=== PATIENT | female | born 1940 | race Caucasian/White ===

== ENCOUNTER 2023-01-09 12:17 | Inpatient (IN) | payer MEDICARE ==
[~2023-01-09] VITALS: Ht 165.1 cm; Wt 62.4 kg
[2023-01-09] VITALS (16 sets, daily range): BP systolic 96–193; BP diastolic 48–88
[2023-01-09 16:27] LABS: Hematocrit 38.9 % (33.0-51.0); Hemoglobin 13.4 g/dL (11.5-16.0); Mean Corpuscular HGB 32.9 pg (26.0-34.0); Mean Corpuscular HGB Conc 34.4 g/dL (31.5-36.5); Mean Corpuscular Volume 96 fL (80-100); Mean Platelet Volume 9.3 fL (9.1-12.4); Platelet Count 191 K/mm3 (150-400); RDW Coefficient Variation 13.1 % (11.7-14.2); Red Blood Cell Count 4.07 M/mm3 (3.80-5.20); White Blood Cell Count 9.71 K/mm3 (4.00-11.30)
[2023-01-09 16:54] LABS: Bun/Creatinine Ratio 26.4 (12.0-20.0); Calcium, Blood 8.7 mg/dL (8.5-10.1); Creatinine, Blood 0.64 mg/dL (0.40-1.00); Potassium, Blood 3.8 mmol/L (3.5-5.5); Thyroid Stimulating Hormone 1.8 uIU/mL (0.360-4.800)
[2023-01-09] MEDS ORDERED: Aspir 8181 MG PO (17:21)
[2023-01-09] MEDS ORDERED: GABA300 PO (17:22)
[2023-01-09] MEDS ORDERED: HYDCHL25 PO (17:22)
[2023-01-09] MEDS ORDERED: NAPR500 PO (17:23)
[2023-01-09] MEDS ORDERED: TAMO10 PO (17:23)
[2023-01-09] MEDS ORDERED: PANT40 PO (17:23)
[2023-01-09] MEDS ORDERED: PROBIOTIC1 EA13 PO (17:24)
[2023-01-09] MEDS ORDERED: B-12500 MC2 PO (17:24)
[2023-01-09] MEDS ORDERED: VITAMIN D5000 UNIT PO (17:24)
--- NOTE | 2023-01-09 19:37 | NUR ---
1900 PATIENT ARRIVED TO ICU 8 VIA BED WITH ZOLE IN PLACE. MONITOR SHOWING 3RD DEGREE HEART BLOCK WITH RATE 30'S. PATIENT AWAKE AND ANSWERING QUESTIONS, YET CONFUSED HX DEMENTIA. AWARE SHE IS NOT IN [place]. UNSURE OF WHY AND WHERE SHE IS. MAEW, NO COMPLAINTS OF DIZZINESS OR PAIN. STARTING [facility] NURSES ARRIVE TO TAKE PATIENT TO HAVE TEMP PACER PLACED WITH DOCTOR WARNER.
--- NOTE | 2023-01-09 19:40 | NUR ---
ADMIT/TRANSFER DIRECT ADMIT FROM [place] FOR [facility]. ALERT BUT CONFUSED ON ARRIVAL. HX DEMENTIA. KNOWS HER NAME, , AND FAMILY MEMBER WHO IS POA. DOES NOT KNOW WHERE SHE IS OR WHAT IS HAPPENING. TELE HR GURPREET WITH 3RD DEGREE BLOCK, BBB, SHORT RUNS OF VTACH. RUNS OF VTACH INCREASED IN DURATION. DR HYLTON ELECTED TO TAKE PATIENT TO DIRECTOR CORPORATE SALES FOR TEMP PACER WIRE PLACEMENT. PATIENT TRANSFERRED TO ICU. PLACE DON ZOLL. 2 G MAG IV ORDERED. BP ELEV. REPORT GIVEN AT BEDSIDE TO PLANT SCIENCE PROFESSOR.
--- NOTE | 2023-01-09 20:30 | NUR ---
PATIENT RETURN TO ROOM FROM CARDIAC TECHNICIAN WITH TRANSVENOUS PACER IN PLACE VIA RIGHT IJ, RATE 60, 5 MA, 0.6 MV MONITOR SHOWING GOOD CAPTURE 100% PACED, OCCASIONAL PVC SEEN. DRESSING CD&I FIRST LOU SEEN IS 80. PATIENT AWAKE, VERY FORGETFUL AND IMPULSIVE. FOLLOWS DIRECTIONS, YET WHILE EXPLAINING TO NOT REMOVE DRESSING PATIENT REACHING UP TO LINE AND PULLING ON DRESSING. PATIENT PLACED IN WRIST RESTRAINTS TO PREVENT ACCIDENTAL REMOVAL OF PACEMAKER.
--- NOTE | 2023-01-09 22:45 | NUR ---
RATE ON PACER INCREASED TO 68 KEEP PULSE RATE GREATER THAN 60
[2023-01-10] VITALS (35 sets, daily range): BP systolic 105–163; BP diastolic 58–111
--- NOTE | 2023-01-10 02:02 | NUR ---
PATIENT REPOSITIONED AND ABLE TO SEE TRANSVENOUS PACER MARKINGS CLEARER. 60 LOU IS CLOSE TO SHEATH (INTRODUCER) NO CHANGE TO 80 LOU AND DRESSING REMAINS CD&I. PATIENT CONTINUES TO BE VERY FORGETFUL AND CONTINUES TO NEED BILAT WRIST RESTRAINTS TO PREVENT ACCIDENTAL REMOVAL OF TRANSVENOUS PACER
--- NOTE | 2023-01-10 07:32 | NUR ---
SUMMARY PATIENT WITH TRANSVENOUS PACEMAKER TO RIGHT IJ IN PLACE WITH GOOD CAPTURE WITH OCCASIONAL PVC. NO FURTHER VTACH. BP STABLE. PATIENT CONTINUES TO BE CONFUSED AND IMPULSIVE.
[2023-01-10 08:29] LABS: Bun/Creatinine Ratio 19.1 (12.0-20.0); Calcium, Blood 8.5 mg/dL (8.5-10.1); Creatinine, Blood 0.63 mg/dL (0.40-1.00); Magnesium, Blood 2.2 mg/dL (1.6-2.4); Potassium, Blood 3.8 mmol/L (3.5-5.5)
--- NOTE | 2023-01-10 11:36 | NUR ---
Spiritual care visit conducted. Patient is lying inbed and alert. She immediately tells me that she is falling apart and can't seem to get the pieces back together again. She explains that she has no idea why they took her out of her room to bring her to the room she is currently in and she does not know where her belongings are. We talk abut where she is, why she is locacated here and where her things are. I explain that we are putting her pieces back together. She talks about her family and her growing up years, and her Faith belief system. She shares about how her family could take it or leave it but she loved prayer, judaism youth group meetings, the positive people and how she has stayed with her enrique her whole life. Her enrique is very meaningful to her currently and prayers is in her thoughts constantly. I conduct a life review, listen empathically, recite inspiring scriptures and provide levety and prayers. Patient states, "You give me uppers, you made me feel wonderful." Those few moments the patient felt better and that is beautiful. I will continue to remain avaialble to patient and family.
--- NOTE | 2023-01-10 11:55 | NUR ---
REASSESSMENT PT HAS BEEN RESTING IN BED THROUGHOUT THE SHIFT. TV PACER CONTINUES WITH GOOD SENSING AND CAPTURE. RATE 66 OUTPUT 5.0 AND SENSING 0.6. PT REMAINS ALERT, ORIENTED TO HERSELF. SHE FORGETS WHAT SHE IS TOLD WITHIN A COUPLE MINUTES. REMAINS IN RESTRAINTS TO PROTECT PACER. TRIALLED PT OUT OF RESTRAINTS SEVERAL TIMES, BUT PT QUICKLY STARTED PICKING AT WIRES. LUGNS ARE CLEAR, RA. BP STABLE. PUREWICK IN PLACE AND PT USING APPROPRIATELY, BUT HAS TO BE REMINDED TO VOID. TEST CONDUCTOR CALLED AND SAID THEY ARE PLANNING FOR EARLY AFTERNOON. PT'S NIECE CALLED AND SPOKE WITH PT.
--- NOTE | 2023-01-10 15:58 | NUR ---
PT BACK FROM PACEMAKER PLACEMENT. ALERT, ORIENTED TO SELF. KEEPS ASKING TO GO OUTSIDE TO HAVE A CIGARETTE AND STARTED TO GET IRRITATED THAT SHE COULDN'T. NICOTINE PATCH THAT SHE REFUSED THIS MORNING OFFERED MULTIPLE TIMES AND PT FINALLY AGREED TO IT. SLING PLACED ON L ARM, BUT PT STILL MOVING IT AROUND A BIT DESPITE INSTRUCTIONS NOT TO. PT ALSO PICKING AT THE DRESSINGON HER NECK WHERE THE TV PACER WAS. SPOKE WITH PREDATORY ANIMAL TRAPPER AND PLAN IS TO GET 1:1 SITTER TO HELP REMIND AND REORIENT PT. SPOKE WITH PT'S BROTHER AND PROVIDED UPDATE.
--- NOTE | 2023-01-10 16:59 | NUR ---
SHIFT SUMMARY PT WENT AND HAD HER PACER PLACED THIS AFTERNOON AND HAS TOLERATED IT WELL. SHE DENIES ANY PAIN. DRESSING OVER INCISION IS C/D/I, MINIMAL SWELLING. SLING ON PT'S L ARM, BUT SHE KEEPS PUSHING IT UP LIKE A SLEEVE SO SHE CAN MOVE HER ARM MORE. PT WAS ALSO STILL PICKING AT THE DRESSING ON HER NECK AND FROM THE PACER WELL TRYING TO GET OUT OF BED SO SHE CAN GO SMOKE. 1:1 SITTER AT THE BEDSIDE FOR SAFETY NOW. LUNGS REMAIN CLEAR, RA, BP STABLE, PUREWICK DRAINING CL YELLOW URINE. CONTINUING TO MONITOR.
--- NOTE | 2023-01-10 21:27 | NUR ---
PATIENT AWAKE WATCHING TV WITH 1:1 SITTER IN ROOM. VERY FORGETFUL. ORIENT TO PERSON ONLY, WITHIN MIN NEEDING TO BE REMINDED THAT SHE HAD A PACEMAKER PLACED TODAY " OH THAT'S RIGHT" AND THEN WITH IN MIN FORGETTING AGAIN. PLEASANT AND COOPERATIVE WITH REDIRECTION. MONITOR SHOWING 100% PACED WITH OCCASIONAL PVC. DRESSING TO LEFT CHEST CD&I, NO SWELLING SEEN. ICE PACK PLACED TO SITE TO HELP WITH SWELLING AND PAIN. SLING IN PLACE TO HELP SUPPORT ARM AND REMIND PATIENT NOT TO USE THAT ARM. UP TO BSC HEART RATE UP TO 120'S, PATIENT VERY FEARFUL OF FALLING, YET DENIES DIZZINESS. PUREWICK REPLACED WHEN PATIENT BACK TO BED AND HEART RATE DOWN TO 90'S
[2023-01-11] VITALS (14 sets, daily range): BP systolic 124–156; BP diastolic 73–99
--- NOTE | 2023-01-11 06:19 | NUR ---
SUMMARY PATIENT SLEEPING OFF AND ON T/O NIGHT. CONTINUES TO BE CONFUSED AND IMPULSIVE. FOLLOWING DIRECTIONS WELL, BUT VERY SHORT TERM MEMORY. 1:1 SITTER IN ROOM TO HELP PATIENT REMEMBER SHE HAD PACEMAKER PLACED, AND TO NOT LIFT LEFT ARM UP, SLING IN PLACE. ICE PACK PLACED TO INCISION SITE TWICE DURING THE NIGHT. PUREWICK IN PLACE TO HELP WITH VOIDING URGENCY. UP TO BSC ONCE DURING THE NIGHT, PATIENT UNSTEADY ON FEET, NEEDING 2 PERSON ASSIST.
--- NOTE | 2023-01-11 08:09 | NUR ---
ASS[facility]ED [facility]ARE BEDSIDE REPORT FROM GEOFFREY CRYSTAL AT 0700. PT RESTING IN BED. A&OX 1. FOLLOWS SIMPLE COMMANDS. PLEASANT. NEEDS REMINDERS TO KEEP ARM IN SLING. C/O SLIGHT PAIN TO LEFT CHEST WALL AT PACEMAKER SITE. DRESSING C/D/I. ICE APPLIED. SLING IN PLACE. DUAL CHAMBER PACER, RATE 75. BP STABLE. PT DENIES LIGHTHEADNESS OR DIZZINESS OR CHEST PAIN. LUNGS CLEAR. PULSES PAL. PIV X 2. PACEMAKER INTERROGATED, TO IMAGING FOR 2 VIEW. SITTER AT BEDSIDE TO REMIND PT TO KEEP ARM BELOW SHOULDER. WILL CONTINUE TO MONITOR.
--- NOTE | 2023-01-11 13:19 | NUR ---
Spiritual care visit conducted. Patient is sitting on a chair and is very pleasant. She tells me she has no idea why she is the hospital or what the plan is with her care, but states that everyone has been so nice and she is enjoying whatever may come. She speaks to me about her siblings, her enrique is God and her fun in each day. She talks about what is good and right and smiles often. She is easily encouraged by her own voice and almost gets giddy while talking about the goodness of God in her life. I provide therapeutic listening and prayer. Patient responded well and showed signs of peace with everything happening around her. I will continue to remain available to patient and family.
--- NOTE | 2023-01-11 14:36 | NUR ---
UPDATE PT CLEARED FOR D/C BY CARDIOLOGY. CASE MANAGEMENT CONTACTED [facility]. PER FIREBRICK LAYER, FACILITY WILL DO SITE VISIT TOMORROW TO DETERMINE IF THEY CAN ACCEPT PT D/T MENTAL STATUS.
--- NOTE | 2023-01-11 17:05 | NUR ---
SHIFT SUMMARY/TRANSFER TO MEDICAL FLOOR NO ACUTE CHANGES THIS SHIFT, STATUS CHANGED TO MED c TELE. PT REMAINS A&OX 1, PLEASANTLY CONFUSED, FOLLOWS COMMANDS, REDIRECTABLE. HR 80'S, V PACED, BP STABLE. LUNGS CLEAR, ON RA. PT UP TO CHAIR, WORKED c PT/OT, ABLE TO STAND, TAKE SMALL STEPS c STANDBY ASSIST, PIVOT. DENIES SYMPTOMS. LEFT ARM REMAINS IN SLING, DRESSING TO LEFT CHEST WALL C/D/I. PLAN FOR [facility]ED [facility]ARE FACILITY TO [facility] FOR TRANSFER TOMORROW. REPORT TO NICOLLE CRYSTAL, PT TRANSFERRED TO [facility].
--- NOTE | 2023-01-11 20:12 | NUR ---
1715- PT TRANSFERRED FROM ICU 8 TO ROOM 349 WHEELCHAIR TO CHAIR WITH ALARM. ORIENTED TO ROOM SET UP AND CALL LIGHT. WITHIN 15 MINUTES, PT GOT UP WITHOUT CALLING, SETTING OFF CHAIR ALARM AND ASSISTED TO BEDSIDE COMMODE TO VOID. SET UP CEMENTER MACHINE MONITOR FROM THIS POINT ON RELATED TO DECREASE IN STM AND SARETY FOR PATIENT.
--- NOTE | 2023-01-11 20:14 | NUR ---
SUMMARY- PT NEW TO ROOM 349 FROM ICU 8 171- PT FORGETFUL, SET OFF CHAIR ALARM AND SET UP FOR PETS AND PET SUPPLIES SALESPERSON FOR MONITORING RELATED TO PT'S DECREASED STM. PT HAS SG DRESSING BEATRIZ, CDI, NO SHADOWING. STATES MILD N/T IN BILAT ARMS AND SAYS THIS IS NEW. PT HAS A SLING ON L ARM, STAFF FREQ REMIND HER NOT TO USE THIS ARM. PT DENIES PAIN ANYSHERE. TELE SET UP. RATE 88, PACED. VSS. TOLERATED DINNER AND TAKING IN FLUIDS. PLAN FOR PT TO RETURN BACK TO [facility]ED [facility]IV[facility] IN [place] AFTER THEY CONDUCT AN EVALUATION 01/12. PT IS TO GO HOME WITH THE MONITOR THAT IS CONNECTED IN HER ROOM TO MONITOR CARDIAC EVANTS, WELL THE 2 BLUE BOXES THAT ARE IN HER ROOM FOR THE PACER.
--- NOTE | 2023-01-12 04:42 | NUR ---
SHIFT SUMMARY: A&O TO SELF, DOES COMPLAIN OF NUMBNESS BILATERAL HANDS WHICH HAS STARTED SINCE HAVING PACER PLACED, SHE DENIES BEING PRESENT PRIOR. IMPULSIVE WITH SEVERAL ATTEMPTS TO GET OUT OF BED AND GO OUTSIDE TO SMOKE. SHE CURRENTLY HAS NICOTINE PATCH ON RIGHT SHOULDER. FREQUENT REMINDERS OF THE NO SMOKING POLICY. LEFT ARM REMAINS IN SLING, PATIENT REMOVES FREQUENTLY AND NEEDS REMINDED OF KEEPING ON TO PROTECT HER INCISION SITE. SHE DENIES ANY PAIN AT THIS TIME. AMBULATES TO BATHROOM WITH 1 ASSIST, SHE DOES VERY WELL. HER DRESSING IS CDI AND RYTHYM IS PACED 78. SHE CONTINUES ON NO ANTICOAGULANTS AND IS ON A CARDIAC DIET. SHE STARTED KEFLEX 1000MG BID FOR PROPHYLAXIS FOR 3 DAYS. PATIENT FACILITY IN [place] IS TO PERFORM AN EVALUATION 01/12/23. CALL LIGHT WITHIN REACH.
--- NOTE | 2023-01-12 13:52 | NUR ---
RN NOTE MS GRANADO IS ORIENTATED TO HER NAME. ABLE TO FOLLOW SIMPLE DIRECTIONS BUT FORGETFUL. SHE HAS BEEN UP TO THE CHAIR A COUPLE OF TIMES TODAY WITH 1 PERSON ASSISTANCE. LEFT ARM IN A SLING D/T NEW PACE MAKER PLACEMENT AND PT REMINDID NOT TO USE HER LEFT ARM. SHE FORGETS AND USES IT BUT HAS NOT LIFTED IT UP. ON TELEMETRY, PACED 80'S, NO CALLS FROM TELETECH. BED LOW, CALL LIGHT IN REACH. BED AND CHAIR ALARMS USED.
[2023-01-12 15:29] VITALS: BP 107/60
--- NOTE | 2023-01-12 18:37 | NUR ---
SHIFT SUMMARY NO CHANGES NOTED SINCE 1352 RN NOTE.
[2023-01-12 20:05] VITALS: BP 124/59
[2023-01-13 05:31] VITALS: BP 145/77
--- NOTE | 2023-01-13 07:25 | NUR ---
SHIFT SUMMARY: A&O TO SELF. NO COMPLAINTS OF PAIN OR DISCOMFORT. RESPIRATIONS EVEN UNLABORED. DRESSING TO LEFT UPPER CHEST CDI. NO EPISODES OF SYNCOPE. CONTINUES ON TELE, SLING TO LEFT ARM. CONTINUES TO BE IMPULSIVE AND GO OUT TO SMOKE.
[2023-01-13 07:59] VITALS: BP 116/97
--- NOTE | 2023-01-13 12:58 | NUR ---
Spiritual care visit conducted. Patient is sitting on a chair and alert. She immediatelytalks about how wel she is doing dispite not knowing where she is going or what she is doing. She perks up further when she talks about her enrique in God and gets to share about how good He has been to her throughout her life. I provided levity and prayer and patient responded well showing evidence of feeling cared for, safe and encouraged in that moment. I will continue to remain available to patient and family.
--- NOTE | 2023-01-13 16:43 | NUR ---
SHIFT SUMMARY PATIENT HAD PERMANENT PACEMAKER PLACED A FEW DAYS AGO. PATIENT UP TO CHAIR MULTIPLE TIMES AND AMBULATED WITH PT IN THE HALLWAY. PATIENT DENIES ANY DISCOMFORT. DRESSING OVER L CHEST SITE DRY AND INTACT. PATIENT IMPULSIVE AND FORGETFUL. PATIENT ON MONITOR AND SAFETY MEASURES IN PLACE.
[2023-01-13 20:34] VITALS: BP 120/59
[2023-01-14 05:55] VITALS: BP 147/79
[2023-01-14 07:55] VITALS: BP 108/58
[2023-01-14 16:01] VITALS: BP 124/68
--- NOTE | 2023-01-14 18:32 | NUR ---
SHIFT SUMMARY A&O X 1-2. VSS. IS PLEASANT & COOPERATIVE WITH ALL CARE. USES A WALKER W/1 STDBY ASSIST FOR RESTROOM USE. SITS IN CHAIR FOR MEALS. PACER SITE RONDA C/D/I. SLING REMAINS ON L ARM. PT VERBALIZES UNDERSTANDING OF LIMITATION OF L ARM MOVEMENT. PLAN IS FOR PLACEMENT UPON DC.
[2023-01-14 19:33] VITALS: BP 100/71
[2023-01-15 03:05] VITALS: BP 102/60
--- NOTE | 2023-01-15 04:03 | NUR ---
SHIFT HAS BEEN UNREMARKABLE. PT IS EXCEEDINGLY PLEASANT, AOX2-3. VERY COOPERATIVE WITH CARE AND VERY EASILY REDIRECTABLE. SBA TO BATHROOM. NEW IV INSERTED BY DI WELCH RN EARLY IN SHIFT AFTER PT PULLED PREVIOUS IV. TOLERATED PROCEDURE WELL. SLING IN PLACE ON LEFT ARM, ENSURED TO EDUCATE ON IMPORTANCE OF NOT RAISING LEFT ARM ABOVE HEAD. DRESSING OVER NEW PACEMAKER IS C/D/I. PT HAS SLEPT THROUGH MOST OF SHIFT FOLLOWING 2100 SHIFT ASSESSMENT. REMOTE MONITORING IN PLACE, BED ALARM ON. BED LOCKED IN LOWEST POSITION. CALL LIGHT LEFT WITHIN REACH.
--- NOTE | 2023-01-15 07:55 | NUR ---
pt sitting up in the chair watching tv, a/ox2, pleasant and cooperative with care, follows commands well, denies pain, states she feels ok, slept well last night,lungs are clear but dim t/o, trace edema noted to b/l le, ppp faint, cap refill <3 sec, vs stable, afebrile, iv site is clear and patent, btx4, abd flat soft nontender, voids without diff, skin has pacer site to LCW with dressing intact, no drainage noted, selma elias, call light in reach, and camera in room.
[2023-01-15 08:06] VITALS: BP 100/67
[2023-01-15 16:39] VITALS: BP 136/66
--- NOTE | 2023-01-15 18:30 | NUR ---
pt has been very pleasant today, up to chair for meals, did attempt to get oob one time but the camera reminded her to not get up and was effective until staff got to room. no further changes this shift, call light in reach.
[2023-01-16 04:02] VITALS: BP 134/59
--- NOTE | 2023-01-16 05:54 | NUR ---
SHIFT SUMMARY NO CHANGES TO PT STATUS. CAMERA MONITORING STILL IN PLACE. PT CALM AND COOPERATIVE WITH CARE. PT FORGETFUL, BUT PLEASANT. BED ALARM ACTIVE.
[2023-01-16 07:33] VITALS: BP 124/63
[2023-01-16 15:29] VITALS: BP 109/60
--- NOTE | 2023-01-16 16:47 | NUR ---
SHIFT SUMMARY PT AOX2-3, FORGETFUL AT TIMES BUT REDIRECTABLE. NO ACUTE CHANGES THIS SHIFT, NO COMPLAINTS BY THE PT. PT IS ON CAMERA AND THE BED ALARM IS IN PLACE. PT HAS BEEN CONTINENT ALL SHIFT, BUT DOES NOT CALL TO DO SO. CALL LIGHT WITHIN REACH, BED IN THE LOWEST POSITION. WILL REPORT TO ONCOMING NURSE.
[2023-01-16 20:02] VITALS: BP 114/70
[2023-01-17 06:12] VITALS: BP 138/78
[2023-01-17 07:15] VITALS: BP 117/67
--- NOTE | 2023-01-17 10:41 | NUR ---
PACEMAKER DRESSING: DISCUSSED PATIENT'S PACEMAKER DRESSING WITH EVELYN Owens, PHYSICAL CHEMIST ON PCU. EVELYN FOUND PATIENT'S DISCHARGE APPOINTMENT PAPER WORK AND PROVIDED EDUCATION ON POST-PACEMAKER DRESSING. DRESSING SHOULD STAY IN PLACE UNTIL PATIENT'S WOUND CLINIC APPOINTMENT. PATIENT IS UNABLE TO SHOWER UNTIL THEN. INSTRUCTIONS AND APPOINTMENTS UPDATED IN PATIENT'S DISCHARGE PACKET.
[2023-01-17] MEDS ORDERED: ACETAMINOPHEN500 MG PO (11:22)
[2023-01-17] MEDS ORDERED: LISI5 PO (11:23)
[2023-01-17] MEDS ORDERED: NICO21TP (11:23)
[2023-01-17] MEDS ORDERED: METO25ER PO (11:23)
--- NOTE | 2023-01-17 13:09 | NUR ---
DISCHARGE SUMMARY: PATIENT DENIED PAIN OR DISCOMFORT THROUGHOUT THE SHIFT. PATIENT UP TO THE BATHROOM MULTIPLE TIMES. PATIENT CONTINENT DURING THE SHIFT. PATIENT HAD AN EXCELLENT APPETITE THIS MORNING. NO TELEMETRY EVENTS REPORTED TO RN FROM CLIENT SALES AND SERVICE OFFICER RN. PATIENT DENIED DIZZINESS, LIGHTHEADEDNESS, OR SHORTNESS OF BREATH AT REST OR WITH ACTIVITY. PATIENT DENIED CHEST PAIN OR DISCOMFORT. PATIENT HAD SLING ON HER ARM AND WAS KEEPING HER LEFT ARM LOW. PER ORDERS, PATIENT DISCHARGED TO [facility]. PATIENT DISCHARGED WITH [facility] IN WHEELCHAIR. PATIENT STABLE AT TIME OF DISCHARGE. REPORT CALLED TO [facility].
== END 2023-01-17 12:51 | disposition home health service (06) | DRG 243 ==
LOC: PCU 12:17 → MEDS 15:30 → PCU 15:30 → ICUE 15:30 → PCU 16:30 → ICUE 19:07 → MEDS 01-11 17:15 → ENPENDDIS 01-17 10:03 → MEDS 01-17 12:51
PROVIDERS: Internal Medicine; ADMIT Internal Medicine
PROC: 5A1223Z Performance of Cardiac Pacing, Continuous (ICD-10-PCS; 2023-01-09)
PROC: 02HK3JZ Insertion of Pacemaker Lead into Right Ventricle, Percutaneous Approach (ICD-10-PCS; 2023-01-09)
PROC: 0JH606Z Insertion of Pacemaker, Dual Chamber into Chest Subcutaneous Tissue and Fascia, Open Approach (ICD-10-PCS; principal; 2023-01-10)
PROC: 02H63JZ Insertion of Pacemaker Lead into Right Atrium, Percutaneous Approach (ICD-10-PCS; 2023-01-10)
PROC: 02HK3JZ Insertion of Pacemaker Lead into Right Ventricle, Percutaneous Approach (ICD-10-PCS; 2023-01-10)
DX: I44.2 Atrioventricular block, complete (principal); E87.1 Hypo-osmolality and hyponatremia; I50.22 Chronic systolic (congestive) heart failure; I42.9 Cardiomyopathy, unspecified; I11.0 Hypertensive heart disease with heart failure; I47.1 Supraventricular tachycardia; Z51.5 Encounter for palliative care; G30.9 Alzheimer's disease, unspecified; F02.80 Dementia in other diseases classified elsewhere, unspecified severity, without behavioral disturbance, psychotic disturbance, mood disturbance, and anxiety; I45.2 Bifascicular block; M19.90 Unspecified osteoarthritis, unspecified site; R21 Rash and other nonspecific skin eruption; D72.829 Elevated white blood cell count, unspecified; K21.9 Gastro-esophageal reflux disease without esophagitis; M79.7 Fibromyalgia; Z90.13 Acquired absence of bilateral breasts and nipples; Z98.890 Other specified postprocedural states; Z87.891 Personal history of nicotine dependence; Z85.3 Personal history of malignant neoplasm of breast
CPT/HCPCS: 33208; 33210; 36415; 71045; 71046; 76937; 80048; 82947; 83735; 84443; 85027; 93005; 93010; 93306; 97110; 97112; 97116; 97129; 97162; 97165; 97530; 97535; 99152; 99153; A9270; C1769; C1781; C1785; C1894; C1898; J0690; J1644; J2250; J3010; J3475; J7030; J7040; J7050